=== PATIENT | female | born 1985 | race African-American/Black ===

== ENCOUNTER 2016-07-13 15:37 | Emergency (ER) | payer SELFPAY ==
[2016-07-13] MEDS ORDERED: Clindamycin 150 MG CAP ONE (15:59)
== END 2016-07-13 16:03 | disposition home or self-care (01) ==
LOC: NAV ERS 15:37
DX: M79.675 Pain in left toe(s) (principal); I10 Essential (primary) hypertension; E11.9 Type 2 diabetes mellitus without complications; Z79.899 Other long term (current) drug therapy; Z79.84 Long term (current) use of oral hypoglycemic drugs
CPT/HCPCS: 99283

== ENCOUNTER 2016-08-18 18:13 | Emergency (ER) | payer SELFPAY | END 2016-08-18 18:54 | disposition home or self-care (01) | LOC: NAV ERS 18:13 | DX: J06.9 Acute upper respiratory infection, unspecified (principal); E11.9 Type 2 diabetes mellitus without complications; I10 Essential (primary) hypertension; Z79.84 Long term (current) use of oral hypoglycemic drugs; Z79.899 Other long term (current) drug therapy | CPT/HCPCS: 99283 ==

== ENCOUNTER 2016-08-20 10:39 | Emergency (ER) | payer SELFPAY ==
[~2016-08-20 10:39] MED LIST: Iopamidol 370 76% 100 ML VIAL ONE
[2016-08-20 11:12] LABS: Bilirubin Negative (Negative); Clarity Clear (Clear); Glucose, Urine (Dipstick) Negative (Negative); Leukocyte Negative (Negative); Nitrite Negative (Negative); Protein, Urine (Dipstick) Negative (Neg-Trace); Urobilinogen 0.2 mg/dL (0.2-1.0)
[2016-08-20 11:14] LABS: Blood, Urine Negative (Negative); Pregnancy Test - Urine (BHCG) NEGATIVE (NEGATIVE)
[2016-08-20 11:15] LABS: Pregu Control Bar Appear? YES (CONTROL BAR)
[2016-08-20] MEDS ORDERED: Ketorolac Tromethamine 30 MG/ML VIAL ONE (11:51)
[2016-08-20 11:59] LABS: ALT (SGPT) 21 U/L (0-55); AST (SGOT) 14 U/L (5-34); Albumin 3.8 g/dL (3.5-5.0); Alkaline Phosphatase 79 U/L (40-150); Anion Gap 12 mmol/L (10-20); BUN (Urea Nitrogen) 11 mg/dL (7.0-18.7); Bilirubin, Total 0.5 mg/dL (0.2-1.2); Calc. Creatinine Clearance 0 mL/min (70-130); Calcium 8.6 mg/dL (7.8-10.44); Carbon Dioxide 26 mmol/L (22-29); Chloride 104 mmol/L (98-107); Estimated GFR-MDRD Greater than 90; Globulin 3.1 g/dL (2.4-3.5); Glucose 114 mg/dL (70-105); Lipase 18 U/L (8-78); Potassium 3.4 mmol/L (3.5-5.1); Protein, Total 6.9 g/dL (6.0-8.3); Sodium 139 mmol/L (136-145)
[2016-08-20 12:11] LABS: #Basophils 0.1 thou/uL (0.0-0.2); #Eosinphils 0.1 thou/uL (0.0-0.7); #Lymphocytes 1.8 thou/uL (1.20-3.40); #Monocytes 0.4 thou/uL (0.11-0.59); #Neutrophils 4.6 thou/uL (1.40-6.50); %Basophils 1.4 % (0.0-1.0); %Eosinophils 1.8 % (0.0-10.0); %Lymphocytes 25.4 % (21.0-51.0); %Monocytes 5.7 % (0.0-10.0); %Neutrophils 65.8 % (42.0-75.0); Mean Corpuscular HGB CONC 32.3 g/dL (32.0-36.0); Mean Corpuscular Hemoglobin 26.6 pg (27.0-31.0); Mean Corpuscular Volume 82.5 fl (81.0-99.0); Mean Platelet Volume 13.1 fL (7.4-10.4); Platelet Count 164 thou/uL (130-400); RBC Distribution Width 13.3 % (11.5-14.5); Red Blood Cell (RBC) Count 4.51 mill/uL (4.20-5.40)
--- NOTE | 2016-08-20 13:18 | CT ---
CT ABDOMEN AND PELVIS WITH CONTRAST: HISTORY: Right side abdominal pain. The patient states her PCP told her to have her appendix surgically renu julio 2 months ago. Did not followup. COMPARISON: None. FINDINGS: The lung bases are clear. No pericardial effusion. Mild hepatic steatosis. Prior cholecystectomy. No calculus within the renal collecting systems. No hydronephrosis. There are Essure devices within the cornuae and fallopian tubes bilaterally. No free intraperitoneal gas or fluid. Aortoiliac contour is normal. There is a nodule within the left adrenal gland measuring 12 x 22 x 23 mm and 38 Hounsfield units. IMPRESSION: 1. No acute abdominal abnormality. No evidence of appendicitis. The appendix is visualized and is normal. 2. Hepatic steatosis. 3. Prior cholecystectomy. 4. Abnormal nodule in the left adrenal gland measuring 12 x 22 x 23 mm. Followup MRI or CT adrenal protocol is recommended. POS: RUSTAM
== END 2016-08-20 14:14 | disposition home or self-care (01) ==
LOC: NAV ERS 10:39
DX: R10.31 Right lower quadrant pain (principal); J06.9 Acute upper respiratory infection, unspecified; E11.9 Type 2 diabetes mellitus without complications; I10 Essential (primary) hypertension; Z79.84 Long term (current) use of oral hypoglycemic drugs; Z79.899 Other long term (current) drug therapy
CPT/HCPCS: 74177; 80053; 81003; 81025; 83690; 85025; 96374; J1885

== ENCOUNTER 2016-09-16 17:05 | Emergency (ER) | payer SELFPAY | END 2016-09-16 18:21 | disposition home or self-care (01) | LOC: NAV ERS 17:05 | DX: J11.1 Influenza due to unidentified influenza virus with other respiratory manifestations (principal); E11.9 Type 2 diabetes mellitus without complications; I10 Essential (primary) hypertension; Z79.84 Long term (current) use of oral hypoglycemic drugs; Z79.899 Other long term (current) drug therapy | CPT/HCPCS: 99283 ==

== ENCOUNTER 2016-11-01 12:19 | Emergency (ER) | payer SELFPAY ==
[2016-11-01] MEDS ORDERED: Ibuprofen 800 MG TAB ONE (12:57)
== END 2016-11-01 12:59 | disposition home or self-care (01) ==
LOC: NAV ERS 12:19
DX: K02.9 Dental caries, unspecified (principal); I10 Essential (primary) hypertension; E11.9 Type 2 diabetes mellitus without complications; Z79.84 Long term (current) use of oral hypoglycemic drugs; Z79.899 Other long term (current) drug therapy
CPT/HCPCS: 99282

== ENCOUNTER 2017-02-07 22:45 | Emergency (ER) | payer SELFPAY ==
[2017-02-07] MEDS ORDERED: HYDROcodone/Acetaminophen 5/325 mg Tablet ONE (23:35)
[2017-02-07] MEDS ORDERED: AMOXicillin 250 MG CAP ONE (23:36)
== END 2017-02-07 23:45 | disposition home or self-care (01) ==
LOC: NAV ERS 22:45
DX: K04.7 Periapical abscess without sinus (principal); E11.9 Type 2 diabetes mellitus without complications; G43.909 Migraine, unspecified, not intractable, without status migrainosus; I10 Essential (primary) hypertension; Z87.891 Personal history of nicotine dependence
CPT/HCPCS: 99282

== ENCOUNTER 2017-02-18 09:20 | Emergency (ER) | payer SELFPAY ==
[2017-02-18] MEDS ORDERED: Lidocaine 1% 20 ML MDV ONE (09:31)
[2017-02-18] MEDS ORDERED: Bacitracin Zinc 1 Packet ONE (09:49)
== END 2017-02-18 09:57 | disposition home or self-care (01) ==
LOC: NAV ERS 09:20
DX: S61.012A Laceration without foreign body of left thumb without damage to nail, initial encounter (principal); E11.9 Type 2 diabetes mellitus without complications; I10 Essential (primary) hypertension; Z87.891 Personal history of nicotine dependence; Z79.84 Long term (current) use of oral hypoglycemic drugs; Z79.899 Other long term (current) drug therapy; W26.0XXA Contact with knife, initial encounter
CPT/HCPCS: 12001; 99001; J2001

== ENCOUNTER 2017-03-09 17:32 | Emergency (ER) | payer SELFPAY ==
[2017-03-09] MEDS ORDERED: Acetaminophen/Codeine 30-300mg Tablet ONE (18:35)
== END 2017-03-09 18:44 | disposition home or self-care (01) ==
LOC: NAV ERS 17:32
DX: M72.2 Plantar fascial fibromatosis (principal); E66.9 Obesity, unspecified; G43.909 Migraine, unspecified, not intractable, without status migrainosus; I10 Essential (primary) hypertension; E11.9 Type 2 diabetes mellitus without complications; Z79.899 Other long term (current) drug therapy; Z87.891 Personal history of nicotine dependence; Z79.84 Long term (current) use of oral hypoglycemic drugs
CPT/HCPCS: 99283

== ENCOUNTER 2017-03-30 21:16 | Emergency (ER) | payer SELFPAY ==
[2017-03-30] MEDS ORDERED: Ondansetron ODT 4 MG TAB ONE (21:29)
[2017-03-30] MEDS ORDERED: Ibuprofen 800 MG TAB ONE (21:42)
[2017-03-30] MEDS ORDERED: Acetaminophen 500 MG TAB ONE (21:42)
== END 2017-03-30 21:52 | disposition home or self-care (01) ==
LOC: NAV ERS 21:16
DX: J11.1 Influenza due to unidentified influenza virus with other respiratory manifestations (principal); E11.9 Type 2 diabetes mellitus without complications; I10 Essential (primary) hypertension; Z87.891 Personal history of nicotine dependence
CPT/HCPCS: 99283; Q0162

== ENCOUNTER 2017-04-03 15:20 | Emergency (ER) | payer SELFPAY | END 2017-04-03 15:58 | disposition home or self-care (01) | LOC: NAV ERS 15:20 | DX: J01.90 Acute sinusitis, unspecified (principal); E11.9 Type 2 diabetes mellitus without complications; I10 Essential (primary) hypertension; G43.909 Migraine, unspecified, not intractable, without status migrainosus; Z87.891 Personal history of nicotine dependence | CPT/HCPCS: 99282 ==

== ENCOUNTER 2017-04-07 08:49 | Emergency (ER) | payer SELFPAY ==
[2017-04-07 10:01] LABS: #Basophils 0.1 thou/uL (0.0-0.2); #Eosinphils 0.1 thou/uL (0.0-0.7); #Lymphocytes 1.7 thou/uL (1.20-3.40); #Monocytes 0.4 thou/uL (0.11-0.59); #Neutrophils 5.9 thou/uL (1.40-6.50); %Basophils 0.7 % (0.0-1.0); %Eosinophils 1.4 % (0.0-10.0); %Lymphocytes 20.8 % (21.0-51.0); %Monocytes 4.5 % (0.0-10.0); %Neutrophils 72.6 % (42.0-75.0); Hemoglobin 12.7 g/dL (12.0-16.0); Mean Corpuscular HGB CONC 30.8 g/dL (32.0-36.0); Mean Corpuscular Hemoglobin 27.2 pg (27.0-31.0); Mean Corpuscular Volume 88.1 fl (81.0-99.0); Mean Platelet Volume 12.1 fL (7.4-10.4); Platelet Count 183 thou/uL (130-400); Red Blood Cell (RBC) Count 4.66 mill/uL (4.20-5.40); White Blood Cell (WBC) Count 8.2 thou/uL (4.8-10.8)
== END 2017-04-07 09:49 | disposition short-term general hospital (02) ==
LOC: NAV ERS 08:49
DX: O20.0 Threatened abortion (principal); O16.1 Unspecified maternal hypertension, first trimester; O24.419 Gestational diabetes mellitus in pregnancy, unspecified control; O99.351 Diseases of the nervous system complicating pregnancy, first trimester; G43.909 Migraine, unspecified, not intractable, without status migrainosus; Z3A.01 Less than 8 weeks gestation of pregnancy; Z87.891 Personal history of nicotine dependence; Z79.899 Other long term (current) drug therapy
CPT/HCPCS: 84702; 85025; 86900; 86901; 99284

== ENCOUNTER 2017-05-29 21:02 | Emergency (ER) | payer MEDICAID, OTHER, SELFPAY ==
[2017-05-29] MEDS ORDERED: Ibuprofen 800 MG TAB ONE (21:34)
--- NOTE | 2017-05-29 21:53 | RAD ---
LEFT ANKLE THREE VIEWS 05/29/17 HISTORY: Pain. COMPARISON: None. FINDINGS: No displaced fracture or malalignment. Soft tissues are unremarkable. IMPRESSION: No displaced fracture or malalignment. POS: RUSTAM
== END 2017-05-29 22:20 | disposition home or self-care (01) ==
LOC: NAV ERS 21:02
DX: M25.572 Pain in left ankle and joints of left foot (principal); E11.9 Type 2 diabetes mellitus without complications; I10 Essential (primary) hypertension; G43.909 Migraine, unspecified, not intractable, without status migrainosus; Z87.891 Personal history of nicotine dependence

== ENCOUNTER 2017-06-10 20:50 | Emergency (ER) | payer OTHER ==
[2017-06-10] MEDS ORDERED: Acetaminophen 500 MG TAB ONE (21:11)
== END 2017-06-10 22:32 | disposition home or self-care (01) ==
LOC: NAV ERS 20:50
DX: J11.1 Influenza due to unidentified influenza virus with other respiratory manifestations (principal); I10 Essential (primary) hypertension; G43.909 Migraine, unspecified, not intractable, without status migrainosus; Z87.891 Personal history of nicotine dependence
CPT/HCPCS: 99283

== ENCOUNTER 2017-06-22 02:07 | Emergency (ER) | payer OTHER ==
[2017-06-22] MEDS ORDERED: predniSONE 20 MG TAB ONE (02:54)
== END 2017-06-22 02:53 | disposition home or self-care (01) ==
LOC: NAV ERS 02:07
DX: R21 Rash and other nonspecific skin eruption (principal); I10 Essential (primary) hypertension; G43.909 Migraine, unspecified, not intractable, without status migrainosus; Z87.891 Personal history of nicotine dependence
CPT/HCPCS: 99282; J7506

== ENCOUNTER 2017-07-11 11:42 | Emergency (ER) | payer OTHER | END 2017-07-11 12:31 | disposition home or self-care (01) | LOC: NAV ERS 11:42 | DX: B08.1 Molluscum contagiosum (principal); I10 Essential (primary) hypertension; G43.909 Migraine, unspecified, not intractable, without status migrainosus; Z87.891 Personal history of nicotine dependence | CPT/HCPCS: 99282 ==

== ENCOUNTER 2017-10-01 12:58 | Emergency (ER) | payer OTHER | END 2017-10-01 13:50 | disposition home or self-care (01) | LOC: NAV ERS 12:58 | DX: K04.7 Periapical abscess without sinus (principal); G43.909 Migraine, unspecified, not intractable, without status migrainosus; I10 Essential (primary) hypertension; Z87.891 Personal history of nicotine dependence | CPT/HCPCS: 99282 ==

== ENCOUNTER 2017-10-09 22:28 | Emergency (ER) | payer OTHER ==
--- NOTE | 2017-10-09 23:52 | RAD ---
LEFT FOOT THREE VIEWS: INDICATIONS: Chronic left foot pain. FINDINGS: No acute fracture or dislocation. Lisfranc joint maintains alignment. Mild enthesophyte formation i s seen at the calcaneus. No significant soft tissue abnormality. IMPRESSION: No acute osseous abnormality of the left foot. POS: HIMANSHU
== END 2017-10-09 23:54 | disposition home or self-care (01) ==
LOC: NAV ERS 22:28
DX: M77.32 Calcaneal spur, left foot (principal); I10 Essential (primary) hypertension; G43.909 Migraine, unspecified, not intractable, without status migrainosus; Z87.891 Personal history of nicotine dependence

== ENCOUNTER 2018-05-13 20:49 | Emergency (ER) | payer OTHER ==
[2018-05-13] MEDS ORDERED: Ondansetron ODT 4 MG TAB ONE (21:15)
== END 2018-05-13 21:30 | disposition home or self-care (01) ==
LOC: NAV ERS 20:49
DX: J06.9 Acute upper respiratory infection, unspecified (principal); E11.9 Type 2 diabetes mellitus without complications; I10 Essential (primary) hypertension; G43.909 Migraine, unspecified, not intractable, without status migrainosus; F41.9 Anxiety disorder, unspecified; F32.9 Major depressive disorder, single episode, unspecified; Z87.891 Personal history of nicotine dependence
CPT/HCPCS: 87804; 99283; Q0162

== ENCOUNTER 2018-07-05 22:07 | Emergency (ER) | payer OTHER ==
[2018-07-05] MEDS ORDERED: Azithromycin 250 MG TAB ONE (23:00)
== END 2018-07-05 23:10 | disposition home or self-care (01) ==
LOC: NAV ERS 22:07
DX: J06.9 Acute upper respiratory infection, unspecified (principal); F41.9 Anxiety disorder, unspecified; F32.9 Major depressive disorder, single episode, unspecified; I10 Essential (primary) hypertension; G43.909 Migraine, unspecified, not intractable, without status migrainosus; Z79.899 Other long term (current) drug therapy
CPT/HCPCS: 87804; 99283